=== PATIENT | male | born 1945 | race Caucasian/White ===

== ENCOUNTER 2023-02-19 11:46 | Emergency (ER) | payer MEDICARE, SELFPAY ==
[2023-02-19 11:50] VITALS: BP 119/57; PULSE 51; RESP 14; TEMP 36.7; O2SAT 99
--- NOTE | 2023-02-19 11:54 | DI.RAD.S_ITS ---
PROCEDURE: XR KNEE LT 3V INDICATIONS: fall t-1, hurts more to bend TECHNIQUE: 3 views of the knee were acquired. COMPARISON: None. FINDINGS: Bones: No fractures or dislocations. No suspicious bony lesions. Tricompartmental joint space narrowing. 2.2 centimeter dense lesion with ring and arc configuration in the distal femur metadiaphysis. Soft tissues: Small joint effusion. No suspicious soft tissue calcifications. IMPRESSION: Small knee joint effusion, without displaced fracture. 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 In the absence of focal pain at this site, this is typically benign. Dictated by: Chris Palafox M.D. on 02/19/2023 at 13:14 Approved by: Chris Palafox M.D. on 02/19/2023 at 13:15
[2023-02-19] MEDS: KETOROLAC 30 MG/ML VIAL IM (11:59)
--- NOTE | 2023-02-19 12:35 | ED_ITS ---
HPI - Fall <Jesusita Miramontes PA-C - Last Filed: 02/19/23 14:45> General Chief Complaint: Fall Stated Complaint: torn ligament in lt leg Time Seen by Provider: 02/19/23 11:56 Source: patient Mode of arrival: Wheelchair History of Present Illness HPI Narrative: 77-year-old male presents to the ED status post a mechanical fall sustained 1 day prior to arrival. Patient states that he was carrying some objects did not note a step in the way, causing him to fall and bump his left knee. Patient states that since then he has 9/10 pain when he flexes the knee. Patient is holding his knee extended in the ED. patient denies numbness, tingling, weakness. Patient denies chest pain, shortness of breath, lightheadedness, dizziness, syncope. Related Data Allergies Allergy/AdvReac Type Severity Reaction Status Date / Time No Known Drug Allergies Allergy Verified 02/19/23 11:54 Review of Systems <Jesusita Miramontes PA-C - Last Filed: 02/19/23 14:45> Review of Systems ROS Unobtainable: All systems reviewed & are unremarkable except as noted in HPI and below Constitutional Constitutional: Denies chills, Denies fatigue, Denies fever(s), Denies frequent falls, Denies lethargy and Denies weakness Eyes Eyes: Denies change in vision, Denies eye discharge, Denies irritation and Denies loss of vision ENT Ears, Nose, Mouth, and Throat: Denies change in voice, Denies dizziness, Denies neck pain, Denies sore throat and Denies throat swelling Cardiovascular Cardiovascular: Denies chest pain, Denies irregular heart rhythm, Denies lightheadedness, Denies palpitations, Denies dyspnea, Denies dyspnea on exertion and Denies orthopnea Respiratory Respiratory: Denies cough, Denies dyspnea, Denies dyspnea on exertion and Denies wheezing Gastrointestinal Gastrointestinal: Denies abdominal pain, Denies change in bowel habits, Denies diarrhea, Denies nausea and Denies vomiting Genitourinary Genitourinary: Denies hematuria, Denies flank pain, Denies urinary incontinence and Denies urinary urgency Musculoskeletal Musculoskeletal: Denies back pain, Denies muscle weakness, Denies neck pain, Denies numbness and Denies tingling Comments: Left knee pain Integumentary/Breasts Skin/Breast: Denies pruritus, Denies erythema, Denies rash and Denies wounds Neurologic Neurologic: Denies behavioral changes, Denies confusion, Denies dizziness, Denies frequent falls, Denies loss of vision, Denies numbness, Denies tingling and Denies weakness Psychiatric Psychiatric: Denies anxiety, Denies behavioral changes, Denies confusion, Denies depression, Denies homicidal ideation and Denies suicidal ideation Endocrine Endocrine: Denies fatigue, Denies flushing and Denies palpitations Hematologic/Lymphatic Hematologic/Lymphatic: Denies easy bruising Allergic/Immunologic Allergic/Immunologic: Denies urticaria, Denies throat swelling and Denies wheezing Patient History <Jesusita Miramontes PA-C - Last Filed: 02/19/23 14:45> Social History Smoking Status: Never smoker Smoking Status: Never smoker alcohol intake frequency: 0-2 drinks per day Substance Use Type: does not use Exam <Jesusita Miramontes PA-C - Last Filed: 02/19/23 14:45> Narrative Exam Narrative: Const General:?cooperative, healthy appearing and comfortable [facility] Head:?normal to inspection Ears:?hearing grossly normal bilaterally Nose:?external nose normal Face and sinus:?normal facial exam and sinuses nontender Mouth:?oral mucosae normal Throat:?posterior oropharynx normal Eyes General:?appearance normal, both eyes and all related structures Neck Neck:?normal visual inspection and no lymphadenopathy noted Resp Effort & Inspection:?normal respiratory effort Auscultation:?clear to auscultation bilaterally Cardio Rate:?regular rate Rhythm:?regular rhythm Musculoskeletal Slight swelling of the left knee. Patient holding knee in extension due to pain on flexion. No deformities, bruising. No tenderness to palpation. Neuro General:?patient alert, patient awake and patient oriented x3 Initial Vital Signs Initial Vital Signs: Vital Signs Temperature 98.1 F 02/19/23 11:50 Pulse Rate 51 L 02/19/23 11:50 Respiratory Rate 14 02/19/23 11:50 Blood Pressure 119/57 L 02/19/23 11:50 Pulse Oximetry 99 02/19/23 11:50 Oxygen Delivery Method Room Air 02/19/23 11:50 <Malia Tanner DO - Last Filed: 02/20/23 08:34> Initial Vital Signs Initial Vital Signs: Vital Signs Temperature 98.1 F 02/19/23 11:50 Pulse Rate 51 L 02/19/23 11:50 Respiratory Rate 14 02/19/23 11:50 Blood Pressure 119/57 L 02/19/23 11:50 Pulse Oximetry 99 02/19/23 11:50 Oxygen Delivery Method Room Air 02/19/23 11:50 Course <Jesusita Miramontes PA-C - Last Filed: 02/19/23 14:45> Orders Ordered: Discontinued Medications Ketorolac Tromethamine (Ketorolac 30 Mg/Ml Vial) 30 mg IM NOW ONE Stop: 02/19/23 11:56 Last Admin: 02/19/23 11:59 Dose: 30 mg Documented By: MEGAN Vital Signs Vital signs: Vital Signs - 8 hr 02/19/23 11:50 02/19/23 13:44 Temperature 98.1 F Pulse Rate 51 L 55 L Respiratory Rate 14 14 Blood Pressure 119/57 L 150/72 H Pulse Oximetry 99 100 Oxygen Delivery Method Room Air Room Air <Malia Tanner DO - Last Filed: 02/20/23 08:34> Orders Ordered: Discontinued Medications Ketorolac Tromethamine (Ketorolac 30 Mg/Ml Vial) 30 mg IM NOW ONE Stop: 02/19/23 11:56 Last Admin: 02/19/23 11:59 Dose: 30 mg Documented By: MEGAN Vital Signs Vital signs: Vital Signs - 8 hr 02/19/23 11:50 02/19/23 13:44 Temperature 98.1 F Pulse Rate 51 L 55 L Respiratory Rate 14 14 Blood Pressure 119/57 L 150/72 H Pulse Oximetry 99 100 Oxygen Delivery Method Room Air Room Air MDM - Fall <Jesusita Miramontes PA-C - Last Filed: 02/19/23 14:45> Lab Data Labs: Point of Care Testing Glucose POC 83 MDM Narrative Medical decision making narrative: 77-year-old male presents to the ED status post a mechanical fall sustained 1 day prior to arrival. Concern for fracture/dislocation versus musculoskeletal sprain/strain. Will obtain x-ray, give Toradol for pain. Will Reassess. Patient's pain improved with Toradol and ice. X-ray negative for fracture/dislocation, there is a mild knee effusion. Discussed findings with patient. Recommend rest, ice, elevation, compression. Recommend ibuprofen for pain. Recommend heat packs after 24 hours. Recommend follow-up with PCP as soon as possible. ED return precautions were discussed with patient. Patient verbalized understanding. Medical records reviewed: Yes <Malia Tanner DO - Last Filed: 02/20/23 08:34> Lab Data Labs: Point of Care Testing Glucose POC 83 Discharge Plan Departure Patient Disposition: Home Clinical Impression: Knee pain Instructions: DI for Knee Pain Activity Restrictions/Additional Instructions: You were evaluated in the ED today for knee pain. Your x-ray shows no fractures or dislocations, shows a knee effusion which is likely due to the recent injury. Your symptoms are most likely due to a musculoskeletal sprain or strain. You will benefit from icing the injury for the 1st 24 hours, after which you may use heat packs on the injury. You may apply lidocaine patches, take ibuprofen 600 mg 3 times a day, elevate your leg above heart level and rested. Please follow- up with your PCP in 3-5 days. Return to the ED if you note worsening symptoms, numbness, tingling, weakness. Stand Alone Forms: Patient Portal/API <Malia Tanner DO - Last Filed: 02/20/23 08:34> Cosign ED Attending Pearlature Attestation: I was immediately available in the department for consultation. Documentation has been reviewed.
[2023-02-19 13:44] VITALS: BP 150/72; PULSE 55; RESP 14; O2SAT 100
== END 2023-02-19 13:58 | disposition home or self-care (01) ==
PROVIDERS: Emergency Provider Student in an Organized Health Care Education/Training Program
DX: M25.562 Pain in left knee (principal)
CPT/HCPCS: 73562; 82962; 96372; 99283; J1885

== ENCOUNTER → 2023-04-16 12:27 | Outpatient (CLI) | payer MEDICARE, SELFPAY ==
--- NOTE | 2023-04-16 | DI.ECHO.S_ITS ---
[place] [facility]---------+ [facility] +---------+ : : [address] [place] [address] : : : : [id number] : : : : Phone: [phone] Echocardiogram Report + + :Name: TERESA VIRK Study Date: 04/16/2023 Height: 67 in : :[facility] ReadingLocation: Weight: 195 lb : : Gender: Male BSA: 2.0 m2 : :: 1945 Age: 77 yrs BP: 117/79 mmHg: :Reason For Study: BRADYCARDIA : :Ordering Physician: PARISH, : :RONALD Pacheco Performed By: Amalia Hankins : :Referring: RONALD LUOG : + + Interpretation Summary The ejection fraction is estimated to be 60-65%. There is no significant valvular heart disease. Procedure: A two-dimensional transthoracic echocardiogram with color flow and Doppler was performed. The study quality was technically adequate. There is no prior echocardiogram noted for this patient. The patient was in sinus bradycardia with heart rates between 39-46 bpm during the exam. Left Ventricle: The left ventricle is normal in size and wall thickness. The ejection fraction is estimated to be 60-65%. Left ventricular wall motion is normal. Right Ventricle: The right ventricle grossly appears normal in size with probable normal systolic function. Atria: The left atrial size is normal. Right atrial size is normal. There is no Doppler evidence for an interatrial shunt. Mitral Valve: The mitral valve is normal in structure and function. There is trace mitral regurgitation. Aortic Valve: The aortic valve is trileaflet. The aortic valve opens well. There is no aortic valve stenosis. There is trace aortic regurgitation. Tricuspid Valve: The tricuspid valve is normal in structure and function. There is trace tricuspid regurgitation. Pulmonic Valve: The pulmonic valve is not well visualized. There is no pulmonic valvular regurgitation. Great Vessels: The aortic root is normal size. The dimensions of the ascending aorta are normal. The IVC is of normal diameter and collapses greater than 50% with a sniff. This suggests a low right atrial pressure of 3 mm Hg. Pericardium/ Pleura There is no pericardial effusion. There is no pleural effusion. MMode/2D Measurements & Calculations LVIDd: 4.9 cm LVOT diam: 2.2 cm LVIDs: 3.5 cm Ao root diam: 3.8 cm FS: 30.2 % asc Aorta Diam: 3.8 cm EPSS: 0.58 cm IVSd: 1.1 cm LVPWd: 0.74 cm LV blount. diameter/BSA (cm/m^2): 2.5 LV sys. diameter/BSA (cm/m^2): 1.7 LA A2 area: 20.1 cm2 RA long axis: 6.0 cm LA A4 area: 18.8 cm2 RA area: 16.8 cm2 LA length (vol): 5.5 cm RA vol: 39.9 ml LA vol: 58.0 ml RA : 20.0 ml/m2 LA vol index: 29.0 ml/m2 IVC diam: 1.4 cm RVD1 (basal): 4.0 cm RVD2 (mid): 3.8 cm TAPSE: 2.1 cm Doppler Measurements & Calculations Ao V2 max: 150.5 cm/sec LVOT Max Noam: 116.9 cm/sec Ao V2 mean: 109.2 cm/sec LV V1 max P.5 mmHg Ao max P.1 mmHg LV V1 VTI: 18.9 cm Ao mean P.2 mmHg CHARITY(I,D): 2.2 cm2 Ao V2 VTI: 33.2 cm CHARITY(V,D): 2.9 cm2 sev ratio: 0.57 CHARITY indexed to BSA (cm^2/m^2): 1.1 MV E max noam: 62.5 cm/sec PA V2 max: 87.5 cm/sec MV A max noam: 68.4 cm/sec PA V2 mean: 63.7 cm/sec MV E/A: 0.91 PA mean P.8 mmHg Med Peak E' Noam: 6.5 cm/sec PA pr(Accel): 20.8 mmHg E/E' med: 9.7 Lat Peak E' Noam: 8.4 cm/sec E/E' lat: 7.4 E/e' average: 8.6 MV dec time: 0.25 sec SV(LVOT): 71.5 ml Reading Physician:04:42 PM
== END ==
PROVIDERS: Referring Provider Physician Assistant; Visit Provider Physician Assistant
DX: R00.1 Bradycardia, unspecified (principal)
CPT/HCPCS: 93306